=== PATIENT | male | born 1965 | race Caucasian/White ===

== ENCOUNTER 2017-06-08 16:23 | Emergency (ER) | payer SELFPAY ==
[2017-06-08 18:10] VITALS: BP 128/68
--- NOTE | 2017-06-08 18:47 | ED ---
Lower Extremity - HPI Summary HPI Summary: 52 yr old male with the complaint of foot pain. Left foot distal area had large piece of steel fall on it. Pain is moderate, worse with bearing weight, he has increased swelling. Was wearing steel toe boot. No other complaints. - History of Current Complaint Chief Complaint: UCTrauma Stated Complaint: LEFT FOOT INJURY (WC) Time Seen by Provider: 06/08/17 18:27 Pain Intensity: 6 - Allergies/Home Medications Allergies/Adverse Reactions: Allergies Allergy/AdvReac Type Severity Reaction Status Date / Time No Known Allergies Allergy Verified 06/08/17 18:10 Home Medications: Home Medications NK [No Home Medications Reported] 06/08/17 [History Confirmed 06/08/17] PMH/Surg Hx/FS Hx/Imm Hx - Surgical History Surgery Procedure, Year, and Place: HERNIA REPAIR Infectious Disease History: No Infectious Disease History: Denies: Traveled Outside the [place] in Last 30 Days - Family History Known Family History: Positive: None - Social History Occupation: Employed Full-time Lives: With Family Alcohol Use: Occasionally Substance Use Type: Reports: None Smoking Status (MU): Heavy Every Day Tobacco Smoker Type: Cigarettes Amount Used/How Often: 1/2 PPD Length of Time of Smoking/Using Tobacco: 28 YRS Have You Smoked in the Last Year: Yes Review of Systems Constitutional: Negative Positive: Other - foot pain Positive: Bruising - foot All Other Systems Reviewed And Are Negative: Yes Physical Exam Triage Information Reviewed: Yes Vital Signs On Initial Exam: Initial Vitals Temp Pulse Resp BP Pulse Ox 98.6 F 89 18 128/68 100 06/08/17 18:05 06/08/17 18:05 06/08/17 18:05 06/08/17 18:05 06/08/17 18:05 Vital Signs Reviewed: Yes Appearance: Positive: Well-Appearing, No Pain Distress Skin: Positive: Other - bruising left distal foot Head/Face: Positive: Normal Head/Face Inspection Eyes: Positive: EOMI ENT: Positive: Normal ENT inspection Neck: Positive: Supple, Nontender Respiratory/Lung Sounds: Positive: Clear to Auscultation, Breath Sounds Present Cardiovascular: Positive: Pulses are Symmetrical in both Upper and Lower Extremities - DP and PT pulse intact left foot Musculoskeletal: Positive: Edema Left - foot with some bruising. Tender over the distal left 1,2,3 metatarsals. Neurological: Positive: Sensory/Motor Intact, Alert, Oriented to Person Place, Time, CN Intact II-III Psychiatric: Positive: Normal - [place] Coma Scale Best Eye Response: 4 - Spontaneous Best Motor Response: 6 - Obeys Commands Best Verbal Response: 5 - Oriented Coma Scale Total: 15 Diagnostics - Vital Signs Vital Signs Temp Pulse Resp BP Pulse Ox 06/08/17 18:05 98.6 F 89 18 128/68 100 - Laboratory Lab Statement: Any lab studies that have been ordered have been reviewed, and results considered in the medical decision making process. - Radiology left foot Xray Interpretation: No Acute Changes Radiology Interpretation Completed By: Radiologist Lower Extremity Course/Dx - Course Course Of Treatment: 52 yr old with contusion to foot. Plan DC home. FU with Ortho and PMD - Diagnoses Provider Diagnoses: Contusion Discharge - Sign-Out/Discharge Documenting (check all that apply): Discharge/Admit/Transfer - Discharge Plan Condition: Good Disposition: HOME Patient Education Materials: Foot Contusion (ED) Forms: *Work Release Referrals: No Primary Care Phys,NOPCP [Primary Care Provider] - 2 Days Ghassan Leblanc MD [Medical Doctor] - 2 Days - Billing Disposition and Condition Condition: GOOD Disposition: HOME
--- NOTE | 2017-06-08 19:05 | RAD ---
HISTORY: Left foot trauma COMPARISONS: None VIEWS: 3, Frontal, lateral, and oblique views of the left foot FINDINGS: BONE DENSITY: Normal. BONES: There is no displaced fracture. JOINTS: There is no arthropathy. ALIGNMENT: There is no dislocation. SOFT TISSUES: Unremarkable. OTHER FINDINGS: None. IMPRESSION: NO ACUTE OSSEOUS INJURY. IF SYMPTOMS PERSIST, RECOMMEND REPEAT IMAGING.
== END 2017-06-08 19:35 | disposition home or self-care (01) ==
LOC: UCCORT 16:23
DX: S90.32XA Contusion of left foot, initial encounter (principal); W20.8XXA Other cause of strike by thrown, projected or falling object, initial encounter; Y93.9 Activity, unspecified; Y92.9 Unspecified place or not applicable; F17.210 Nicotine dependence, cigarettes, uncomplicated
CPT/HCPCS: 99202; G0463

== ENCOUNTER 2018-01-06 18:10 | Emergency (ER) | payer OTHER ==
[2018-01-06 19:22] VITALS: BP 154/88
[2018-01-06] MEDS ORDERED: Lidocaine 1% MPF wEPI 200,000* 30 ML SDV INJ ONE (19:49)
[2018-01-06] MEDS ORDERED: Clindamycin CAP* 150 MG PO ONE (20:29)
[2018-01-06] MEDS ORDERED: Tetan/Diph/Pertus SYR(Tdap)* 0.5 ML SYR(BOOSTRIX) use SYR IM ONE (20:31)
--- NOTE | 2018-01-06 20:31 | UC ---
Upper Extremity HPI - HPI Summary HPI Summary: 52-year-old male presents with onset of left elbow pain, redness, and swelling last evening. 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 States the burn appeared to be healing well until last evening. States the redness and swelling to progressively been worsening over the last 24 hours. He has noticed some general malaise and chills. Denies fever , joint pain, decreased range of motion, numbness, tingling, or weakness of the arm or hand. - History of Current Complaint Chief Complaint: UCSkin Stated Complaint: ELBOW BURN Time Seen by Provider: 01/06/18 19:31 Hx Obtained From: Patient Onset/Duration: Gradual Onset, Lasting Hours Severity Initially: Mild Severity Currently: Moderate Pain Intensity: 4 Character: Aching Aggravating Factor(s): Movement, Other - Touch Alleviating Factor(s): Nothing Associated Signs And Symptoms: Positive: Swelling, Redness - Allergies/Home Medications Allergies/Adverse Reactions: Allergies Allergy/AdvReac Type Severity Reaction Status Date / Time No Known Allergies Allergy Verified 01/06/18 19:22 PMH/Surg Hx/FS Hx/Imm Hx Previously Healthy: Yes - Denies significant PMH - Surgical History Surgical History: Yes Surgery Procedure, Year, and Place: HERNIA REPAIR - Family History Known Family History: Positive: Non-Contributory - Social History Occupation: Employed Full-time Lives: With Family Alcohol Use: Occasionally Substance Use Type: None Smoking Status (MU): Heavy Every Day Tobacco Smoker Type: Cigars Amount Used/How Often: 1/2 PPD Length of Time of Smoking/Using Tobacco: 28 YRS Have You Smoked in the Last Year: Yes Household Exposure Type: Cigars Review of Systems All Other Systems Reviewed And Are Negative: Yes Constitutional: Positive: Fever, Chills Skin: Positive: Other - Erythema Respiratory: Negative: Shortness Of Breath, Cough Cardiovascular: Negative: Palpitations, Chest Pain Motor: Negative: Decreased ROM, Weakness Neurovascular: Negative: Decreased Sensation Musculoskeletal: Positive: Other: - See HPI Is Patient Immunocompromised?: No Physical Exam - Summary Physical Exam Summary: GENERAL APPEARANCE: Well developed, well nourished, alert and cooperative, and appears to be in no acute distress. CARDIAC: Normal S1 and S2. No S3, S4 or murmurs. Rhythm is regular. There is no peripheral edema, cyanosis or pallor. Extremities are warm and well perfused. Capillary refill is less than 2 seconds. LUNGS: Clear to auscultation and percussion without rales, rhonchi, wheezing or diminished breath sounds. ABDOMEN: Positive bowel sounds. Soft, nondistended, nontender. No guarding or rebound. No masses or hepatosplenomegally. MUSKULOSKELETAL: ROM intact to all extremities. Normal muscular development. Erythema with increased warmth to the posterior left elbow aproximately 5-6 cm in diameter with a small, healing, punctate lesion centrally. The olecranon bursa is swollen and palpable. Non-painful, full ROM without crepitus. EXTREMITIES: Peripheral pulses intact. NEUROLOGICAL: Strength and sensation symmetric and intact throughout. SKIN: Overall skin inspection normal color, texture and turgor. See above. Triage Information Reviewed: Yes Vital Signs: Initial Vital Signs Temp 100.0 F 01/06/18 19:19 Pulse 110 01/06/18 19:19 Resp 16 01/06/18 19:19 BP 154/88 01/06/18 19: Pulse Ox 96 01/06/18 19:19 Vital Signs Reviewed: Yes Procedures - Procedure Summary Procedure Summary: PROCEDURE NOTE: Aspiration of the left olecranon bursa PROCEDURE: Informed consent was obtained and timeout protocol was performed prior to initiating the procedure. The skin was prepped with Betadine. The site was anesthetized with 2 ml of 1% lidocaine with epinephrine. The bursa was aspirated for 2 ml of slightly cloudy yellow fluid using a 10 ml syringe and 18 g needle. A gauze dressing was then placed and an elastic bandage applied. Bleeding was minimal. The patient tolerated the procedure well without complications. Standard post- procedure care is explained and return precautions were given. Diagnostics - Radiology No standard instances Radiology Interpretation Completed By: ED Physician - No FB. No acute osseous patholgy noted. Upper Extremity Course/Dx - Course Course Of Treatment: 52-year-old male presents with onset of left elbow pain, redness, and swelling last evening. 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 States the burn appeared to be healing well until last evening. States the redness and swelling to progressively been worsening over the last 24 hours. He has noticed some general malaise and chills. Denies fever, joint pain, decreased range of motion , numbness, tingling, or weakness of the arm or hand. Low grade fever of 100.0 F at triage otherwise VS stable. Exam revealed tenderness, erythema, increased warmth, edema, and a palpable olecranon bursa to left elbow. Full painless ROM. X-ray of left elbow negative for acute osseous pathology. Concern for septic bursitis therfore an aspiration of the bursa was performed. Small amount of slightly cloudy fluid was removed and sent for cell count, gram stain, culture, and crystal analysis. A compression dressing was applied. Patient was started on clindamycin 300 mg TID x 7 days pending results. Recommend OTC NSAIDs for pain and fever management. He is to follow up with PCP or return to in 2 days for recheck of symptoms. Warning symptoms were reviewed with patient. Verbalizes understanding and agrees with POC. - Differential Dx/Diagnosis Differential Diagnosis/HQI/PQRI: Bursitis, Septic Arthritis, Other - Cellulitis Provider Diagnosis: Cellulitis of left elbow, Septic olecranon bursitis of left elbow Discharge - Sign-Out/Discharge Documenting (check all that apply): Patient Departure All imaging exams completed and their final reports reviewed: No - Discharge Plan Condition: Stable Disposition: HOME Prescriptions: Clindamycin HCl 300 mg PO TID #19 capsule Patient Education Materials: Cellulitis (ED), Elbow Bursitis (ED) Referrals: No Primary Care Phys,NOPCP [Primary Care Provider] - Additional Instructions: The x-ray performed in the clinic tonight was normal. So be reviewed tomorrow by the radiologist and we will contact you if they find anything that would require any change in your treatment plan. I suspect that you have some cellulitis (infection of the skin) and possible infectious bursitis of the left elbow. We drained fluid from the bursa this evening and will be sending to the lab for testing. We will notify you if there is any change in the treatment plan based on these results. Start clindamycin 300 mg 1 capsule 3 times a day for the next 7 days. We have given you the first dose in the clinic tonight as well as a dose to take first thing in the morning. You may take emft-jio-vdfeoyt acetaminophen (Tylenol), ibuprofen (Advil, Motrin) , or naproxen (Aleve) according to directions as needed for any pain or fever. A dressing was placed over the area we drained and an Price wrap was applied to help reduce the chance of the bursa comings inflamed and swollen again. I recommend that he leave this in place although you may remove to shower. We also updated your tetanus in the clinic today. Make sure that you contact her primary care providers of primary update your records. Follow-up with your primary care provider or return to this facility in 2 days for recheck of your symptoms. It was also noted that your blood pressure was elevated in the clinic today. It is recommended that you follow up with your primary care provided within 4 weeks to have this rechecked. Seek immediate medical attention in the emergency room if you develop high persistent fever greater than 100.5 F despite taking acetaminophen, ibuprofen, or naproxen, you have redness that continues to spread, pain that is not managed by the [id number]-[id number] pain medication, he developed numbness tingling or weakness in the arm, hand, or fingers, or have any worsening of symptoms. - Billing Disposition and Condition Condition: STABLE Disposition: Home - Attestation Statements Provider Attestation: Per institutional requirements, I have reviewed the chart, however, I was not consulted specifically or made aware of this patient by the midlevel provider. I did not personally evaluate, interact with , or disposition this patient.
--- NOTE | 2018-01-07 15:21 | UC ---
- Progress Note Progress Note: Radiology report reviewed. Agree with wet read. - EKG/XRAY/CT Xray Comments: Patient Name: FRANK MACHADO Medical Record#: [id number] Course/Dx - Diagnoses Provider Diagnoses: Cellulitis of left elbow, Septic olecranon bursitis of left elbow Discharge - Sign-Out/Discharge Documenting (check all that apply): Post-Discharge Follow Up All imaging exams completed and their final reports reviewed: Yes - Discharge Plan Condition: Stable Disposition: HOME Prescriptions: Clindamycin HCl 300 mg PO TID #19 capsule Patient Education Materials: Cellulitis (ED), Elbow Bursitis (ED) Referrals: No Primary Care Phys,NOPCP [Primary Care Provider] - Additional Instructions: The x-ray performed in the clinic tonight was normal. So be reviewed tomorrow by the radiologist and we will contact you if they find anything that would require any change in your treatment plan. I suspect that you have some cellulitis (infection of the skin) and possible infectious bursitis of the left elbow. We drained fluid from the bursa this evening and will be sending to the lab for testing. We will notify you if there is any change in the treatment plan based on these results. Start clindamycin 300 mg 1 capsule 3 times a day for the next 7 days. We have given you the first dose in the clinic tonight as well as a dose to take first thing in the morning. You may take xhdk-lmy-gzzivrk acetaminophen (Tylenol), ibuprofen (Advil, Motrin) , or naproxen (Aleve) according to directions as needed for any pain or fever. A dressing was placed over the area we drained and an Price wrap was applied to help reduce the chance of the bursa comings inflamed and swollen again. I recommend that he leave this in place although you may remove to shower. We also updated your tetanus in the clinic today. Make sure that you contact her primary care providers of primary update your records. Follow-up with your primary care provider or return to this facility in 2 days for recheck of your symptoms. It was also noted that your blood pressure was elevated in the clinic today. It is recommended that you follow up with your primary care provided within 4 weeks to have this rechecked. Seek immediate medical attention in the emergency room if you develop high persistent fever greater than 100.5 F despite taking acetaminophen, ibuprofen, or naproxen, you have redness that continues to spread, pain that is not managed by the iwca-zkm-qhdizjj pain medication, he developed numbness tingling or weakness in the arm, hand, or fingers, or have any worsening of symptoms. - Billing Disposition and Condition Condition: STABLE Disposition: Home
== END 2018-01-06 21:04 | disposition home or self-care (01) ==
LOC: UCCORT 18:10
DX: L03.114 Cellulitis of left upper limb (principal); B95.61 Methicillin susceptible Staphylococcus aureus infection as the cause of diseases classified elsewhere; M71.9 Bursopathy, unspecified; F17.290 Nicotine dependence, other tobacco product, uncomplicated
CPT/HCPCS: 36415; 87070; 87077; 87186; 87205; 89051; 89060; 90471; 90715; 99212; A9270-GY; G0463; J2001

== ENCOUNTER 2018-02-06 15:33 | Emergency (ER) | payer SELFPAY ==
[2018-02-06 17:27] VITALS: BP 137/84
--- NOTE | 2018-02-06 18:00 | UC ---
Respiratory Complaint HPI - HPI Summary HPI Summary: 52-year-old male presents with a one-month history of productive cough for yellow sputum, intermittent low-grade fevers, occasional chest "tightness" that is usually present first thing in the morning and goes away once he gets up and starts coughing. Denies nasal congestion, ear pain, sore throat, diaphoresis, weakness, dizziness, palpitations, shortness of breath, wheezing, abdominal pain , nausea, or vomiting. Patient smokes cigars daily. - History of Current Complaint Chief Complaint: UCRespiratory Stated Complaint: CHEST CONGESTION Time Seen by Provider: 02/06/18 17:43 Hx Obtained From: Patient Pain Intensity: 0 - Allergies/Home Medications Allergies/Adverse Reactions: Allergies Allergy/AdvReac Type Severity Reaction Status Date / Time No Known Allergies Allergy Verified 02/06/18 17:25 PMH/Surg Hx/FS Hx/Imm Hx Previously Healthy: Yes - Denies significant PMH - Surgical History Surgical History: Yes Surgery Procedure, Year, and Place: HERNIA REPAIR - Family History Known Family History: Positive: Non-Contributory - Social History Occupation: Employed Full-time Lives: With Family Alcohol Use: None Substance Use Type: None Smoking Status (MU): Heavy Every Day Tobacco Smoker Type: Cigars Amount Used/How Often: 1/2 PPD Length of Time of Smoking/Using Tobacco: 28 YRS Have You Smoked in the Last Year: Yes Household Exposure Type: Cigars Review of Systems All Other Systems Reviewed And Are Negative: Yes Constitutional: Positive: Fever, Fatigue. Negative: Chills Skin: Negative: Rash Eyes: Negative: Drainage, Eye Redness ENT: Negative: Sore Throat, Ear Ache, Nasal Discharge, Sinus Congestion, Sinus Pain/Tenderness Respiratory: Positive: Cough. Negative: Shortness Of Breath Cardiovascular: Negative: Palpitations, Chest Pain Gastrointestinal: Negative: Abdominal Pain, Vomiting, Diarrhea, Nausea Genitourinary: Positive: Negative Musculoskeletal: Positive: Negative Neurological: Positive: Negative Is Patient Immunocompromised?: No Physical Exam - Summary Physical Exam Summary: GENERAL APPEARANCE: Well developed, well nourished, alert and cooperative, and appears to be in no acute distress. EYES: Conjunctiva clear. No discharge. Vision is grossly intact. EARS: External auditory canals and tympanic membranes clear, hearing grossly intact. NOSE: No nasal discharge. THROAT: Oral cavity and pharynx normal. No inflammation, swelling, exudate, or lesions. Teeth and gingiva in good general condition. NECK: Neck supple, non-tender without lymphadenopathy. CARDIAC: Normal S1 and S2. No S3, S4 or murmurs. Rhythm is regular. There is no peripheral edema, cyanosis or pallor. Extremities are warm and well perfused. Capillary refill is less than 2 seconds. LUNGS: Clear to auscultation and percussion without rales, rhonchi, wheezing or diminished breath sounds. Occasional non-productive cough. ABDOMEN: Positive bowel sounds. Soft, nondistended, nontender. No guarding or rebound. No masses or hepatosplenomegally. MUSKULOSKELETAL: ROM intact to all extremities. No joint erythema or tenderness. Normal muscular development. Normal gait. SKIN: Skin normal color, texture and turgor with no lesions or eruptions. Triage Information Reviewed: Yes Vital Signs: Initial Vital Signs Temp 98.2 F 02/06/18 17:24 Pulse 99 02/06/18 17:24 Resp 16 02/06/18 17:24 BP 137/84 02/06/18 17:24 Pulse Ox 99 02/06/18 17:24 Vital Signs Reviewed: Yes Diagnostic Evaluation - Laboratory O2 Sat by Pulse Oximetry: 99 - Radiology Radiology Interpretation Completed By: ED Physician - Peribronchial cuffing, no infiltrate., Radiologist Summary of Radiographic Findings: Patient Name: FRANK MACHADO Medical Record#: [id number]. Ordering Physician: Oswaldo Villagomez NP Acct.#: [id number]. : 1965 Age: 52 Sex: M Location: [facility]. Exam Date: 1750 ADM Status: REG ER. Order Information: CHEST PA LAT 2 [facility]. Accession Number: [id number]. CPT: 85873. HISTORY: shortness of breath, cough. COMPARISONS: None. VIEWS: 4: Frontal dual-energy and lateral views of the chest. FINDINGS: CARDIOMEDIASTINAL SILHOUETTE: The cardiomediastinal silhouette is normal. KELLIE: The kellie are normal. PLEURA: The costophrenic angles are sharp. No pleural abnormalities are noted. LUNG PARENCHYMA: The lungs are clear. ABDOMEN: The upper abdomen is clear. There is no subphrenic gas. BONES AND SOFT TISSUES: No bone or soft tissue abnormalities are noted. OTHER: None. IMPRESSION: HYPERINFLATION, CONSISTENT WITH COPD. NO ACTIVE CARDIOPULMONARY DISEASE. Respiratory Course/Dx - Course Course Of Treatment: 52-year-old male presents with a one-month history of productive cough for yellow sputum, intermittent low-grade fevers, occasional chest "tightness" that is usually present first thing in the morning and goes away once he gets up and starts coughing. Denies nasal congestion, ear pain, sore throat, diaphoresis, weakness, dizziness, palpitations, shortness of breath , wheezing, abdominal pain, nausea, or vomiting. Patient smokes cigars daily. Afebrile. Vital signs stable. Exam was unremarkable except for an occasional nonproductive cough. Chest x-ray showed some peribronchial cuffing but no infiltrate. Continue duration of his symptoms will treat him for bronchitis with a course of azithromycin and provided with a prescription for Tessalon Perles as needed for cough. He is to follow-up with his primary care provider in 7 days if symptoms do not improve. Warning symptoms were reviewed with the patient. Verbalizes understanding and agrees with plan of care. - Differential Dx/Diagnosis Differential Diagnosis/HQI/PQRI: Bronchitis, Lower Resp Infection, Sinusitis Provider Diagnosis: Bronchitis Discharge - Sign-Out/Discharge Documenting (check all that apply): Patient Departure All imaging exams completed and their final reports reviewed: Yes - Discharge Plan Condition: Stable Disposition: HOME Prescriptions: Azithromycin 250 mg PO DAILY #4 tablet Benzonatate CAP* [Tessalon 100 MG CAP*] 100 mg PO TID PRN #30 cap PRN Reason: Cough Patient Education Materials: Acute Bronchitis (ED) Referrals: Oswaldo Padilla MD [Primary Care Provider] - 7 Days (If no improvement.) Additional Instructions: The x-ray performed in the clinic today showed no evidence of pneumonia.. Your history and exam are consistent with bronchitis. Considering the duration of your symptoms we will treat you with an antibiotic for the infection. Start azithromycin. We gave you the first dose in the clinic. Starting tomorrow , take 1 tablet daily for next 4 days. May take Tesslon Perles 1 cap every 8 hours as needed for cough. I would recommend that you consider stopping smoking as this can contribute to and worsen symptoms. Follow up with your primary care provider in 7 days if symptoms persist. Seek immediate medical attention in the emergency room if you have fever greater than 100.5 F despite taking acetaminophen or ibuprofen, have chest pain , difficulty breathing, or have any worsening of symptoms. - Billing Disposition and Condition Condition: STABLE Disposition: Home
[2018-02-06] MEDS ORDERED: Azithromycin TAB* 250 MG PO ONE (18:05)
== END 2018-02-06 18:14 | disposition home or self-care (01) ==
LOC: UCCORT 15:33
DX: J40 Bronchitis, not specified as acute or chronic (principal); F17.290 Nicotine dependence, other tobacco product, uncomplicated
CPT/HCPCS: 71046; 99212; A9270-GY; G0463